=== PATIENT | female | born 1955 | race Caucasian/White ===

== ENCOUNTER 2018-06-03 12:24 | Outpatient (CLI) | payer OTHER ==
--- NOTE | 2018-06-03 14:12 | RAD ---
THREE VIEWS OF THE LUMBAR SPINE: DATE: 06/03/2018. COMPARISON: None. HISTORY: Low back pain and hip pain, back spasms, pain radiating into the left groin and right leg. FINDINGS: There are postoperative clips in the right upper quadrant suggesting prior cholecystectomy. Five lum bar-type vertebral bodies are present with intact pedicles on frontal imaging. There is atherosclero tic calcification of the abdominal aorta. There is normal vertebral body height and alignment within the lumbar spine. There is lower lumbar s pine facet hypertrophy. There is disk space narrowing and degenerative end plate change at the lumbo sacral junction. IMPRESSION: No acute findings. Degenerative changes as detailed above. POS: [facility]
--- NOTE | 2018-06-03 14:14 | RAD ---
FRONTAL AND LATERAL IMAGING OF THE LEFT HIP: DATE: 06/03/2018. COMPARISON: None. HISTORY: Low back pain and hip pain, back spasms. FINDINGS: There is mild lateral acetabular osteophyte formation. There is mild osteophyte formation involving the greater trochanter. No acute fracture or dislocation. IMPRESSION: No acute findings. POS: [facility]
== END 2018-06-03 12:25 | disposition home or self-care (01) ==
LOC: SCSRAD 12:24
PROVIDERS: ATTEND Family Medicine
DX: M54.5 Low back pain (principal); M16.12 Unilateral primary osteoarthritis, left hip; M47.817 Spondylosis without myelopathy or radiculopathy, lumbosacral region
CPT/HCPCS: 72100

== ENCOUNTER 2018-07-04 12:15 | Outpatient (CLI) | payer OTHER ==
--- NOTE | 2018-07-04 12:58 | RAD ---
CHEST 2 VIEWS: HISTORY: Cough. Influenza. FINDINGS: No comparison. Cardiac silhouette and pulmonary vasculature are unremarkable. Mediastinum is midlin e. No confluent airspace consolidation, pneumothorax, or pleural fluid evident. IMPRESSION: No active cardiopulmonary abnormalities are demonstrated. POS: [facility]
== END 2018-07-04 12:16 | disposition home or self-care (01) ==
LOC: SCSRAD 12:15
PROVIDERS: ATTEND Nurse Practitioner Family
DX: R05 Cough (principal)
CPT/HCPCS: 71046

== ENCOUNTER 2023-05-27 11:22 | Inpatient (IN) | payer OTHER ==
[2023-05-27 16:03] VITALS: BMI 58.6
[2023-05-27] MEDS ORDERED: Dextrose 5% in Water 1,000 ML IV PRN (17:23)
[2023-05-27] MEDS ORDERED: Glucagon 1 MG/ML KIT IM PRN (17:23)
[2023-05-27] MEDS ORDERED: HumaLOG 300 UNITS/3 ML VIAL SC PRN (17:23)
[2023-05-27] MEDS ORDERED: Dextrose 50% Abboject 50 ML SYRINGE SLOW IVP PRN (17:23)
[2023-05-27] MEDS: Famotidine 20 MG TAB PO SCH (20:35)
[2023-05-27] MEDS: Saccharomyces boulardii 250 MG CAP PO SCH (20:35)
[2023-05-28] MEDS: Amiodarone 200 MG TAB PO SCH (10:01)
[2023-05-28] MEDS: Famotidine 20 MG TAB PO SCH ×2 (10:01→21:25)
[2023-05-28] MEDS: Saccharomyces boulardii 250 MG CAP PO SCH ×2 (10:01→21:25)
[2023-05-28] MEDS: Sertraline 100 MG TAB PO SCH (10:02)
[2023-05-28 10:11] LABS: #Basophils 0.1 thou/uL (0.0-0.2); #Eosinphils 0.2 thou/uL (0.0-0.7); #Monocytes 0.8 thou/uL (0.11-0.59); %Basophils 0.8 % (0.0-1.0); %Lymphocytes 10.1 % (21.0-51.0); %Monocytes 4.7 % (0.0-10.0); %Neutrophils 82.4 % (42.0-75.0); Hematocrit 40.1 % (36.0-47.0); Hemoglobin 12.8 g/dL (12.0-16.0); Mean Corpuscular HGB CONC 31.9 g/dL (32.0-36.0); Mean Corpuscular Hemoglobin 30.4 pg (27.0-31.0); Mean Corpuscular Volume 95.2 fl (78.0-98.0); Mean Platelet Volume 9.7 fL (7.4-10.4); Platelet Count 517 10x3/uL (130-400); RBC Distribution Width 15.7 % (11.5-14.5); Red Blood Cell (RBC) Count 4.21 mill/uL (4.20-5.40); White Blood Cell (WBC) Count 15.8 10x3/uL (4.8-10.8)
[2023-05-28 10:38] LABS: Anion Gap 13 mmol/L (10-20); BUN (Urea Nitrogen) 13 mg/dL (9.8-20.1); Calc. Creatinine Clearance 233 mL/min (70-130); Calcium 8.4 mg/dL (7.8-10.44); Carbon Dioxide 25 mmol/L (23-31); Chloride 104 mmol/L (98-107); Estimated GFR 100; Glucose 111 mg/dL (80-115); Magnesium 1.8 mg/dL (1.6-2.6); Phosphorus 2.8 mg/dL (2.3-4.7); Potassium 3.7 mmol/L (3.5-5.1); Sodium 138 mmol/L (136-145)
[2023-05-28] MEDS ORDERED: GoLYTELY 4,000 ml Bottle PO SCH (16:00)
[2023-05-29 03:56] LABS: #Basophils 0.2 thou/uL (0.0-0.2); #Eosinphils 0.2 thou/uL (0.0-0.7); #Monocytes 0.9 thou/uL (0.11-0.59); #Neutrophils 13.5 thou/uL (1.40-6.50); %Eosinophils 1.3 % (0.0-10.0); %Lymphocytes 10.9 % (21.0-51.0); %Monocytes 5.4 % (0.0-10.0); %Neutrophils 80.6 % (42.0-75.0); Hematocrit 38.2 % (36.0-47.0); Hemoglobin 12.3 g/dL (12.0-16.0); Mean Corpuscular HGB CONC 32.2 g/dL (32.0-36.0); Mean Corpuscular Hemoglobin 30.7 pg (27.0-31.0); Mean Corpuscular Volume 95.3 fl (78.0-98.0); Mean Platelet Volume 9.4 fL (7.4-10.4); Platelet Count 534 10x3/uL (130-400); RBC Distribution Width 15.6 % (11.5-14.5); Red Blood Cell (RBC) Count 4.01 mill/uL (4.20-5.40); White Blood Cell (WBC) Count 16.7 10x3/uL (4.8-10.8)
[2023-05-29] MEDS ORDERED: Lidocaine 2% PF 5 ML VIAL ONE (08:41)
[2023-05-29] MEDS ORDERED: PROPOFOL 20 ML ONE (08:42)
[2023-05-29] MEDS ORDERED: PROPOFOL 200 MG/20 ML VIAL ONE (09:15)
[2023-05-29] MEDS ORDERED: Esmolol 100 MG/10 ML VIAL ONE (09:15)
[2023-05-29] MEDS ORDERED: Lidocaine 1% PF 5 ML VIAL ONE (09:15)
[2023-05-29] MEDS: Amiodarone 200 MG TAB PO SCH (11:26)
[2023-05-29] MEDS: Saccharomyces boulardii 250 MG CAP PO SCH ×2 (11:26→20:14)
[2023-05-29] MEDS: Famotidine 20 MG TAB PO SCH ×2 (11:26→20:14)
[2023-05-29] MEDS: Sertraline 100 MG TAB PO SCH (11:26)
[2023-05-30 04:12] LABS: #Basophils 0.1 thou/uL (0.0-0.2); #Eosinphils 0.2 thou/uL (0.0-0.7); #Monocytes 0.8 thou/uL (0.11-0.59); #Neutrophils 6.8 thou/uL (1.40-6.50); %Basophils 1.3 % (0.0-1.0); %Eosinophils 1.6 % (0.0-10.0); %Lymphocytes 18.9 % (21.0-51.0); %Monocytes 8.2 % (0.0-10.0); %Neutrophils 69.4 % (42.0-75.0); Hemoglobin 11.3 g/dL (12.0-16.0); Mean Corpuscular HGB CONC 31.4 g/dL (32.0-36.0); Mean Corpuscular Hemoglobin 30.4 pg (27.0-31.0); Mean Corpuscular Volume 96.8 fl (78.0-98.0); Mean Platelet Volume 9.3 fL (7.4-10.4); Platelet Count 478 10x3/uL (130-400); RBC Distribution Width 15.6 % (11.5-14.5); Red Blood Cell (RBC) Count 3.72 mill/uL (4.20-5.40); White Blood Cell (WBC) Count 9.9 10x3/uL (4.8-10.8)
[2023-05-30] MEDS: Saccharomyces boulardii 250 MG CAP PO SCH ×2 (08:44→20:57)
[2023-05-30] MEDS: Famotidine 20 MG TAB PO SCH ×2 (08:44→20:57)
[2023-05-30] MEDS: Amiodarone 200 MG TAB PO SCH (08:44)
[2023-05-30] MEDS: Sertraline 100 MG TAB PO SCH (08:44)
[2023-05-30] MEDS ORDERED: Furosemide 20 MG TAB PO SCH (11:30)
[2023-05-30 12:55] LABS: Hemoglobin A1c 5.5 % (4.0-6.0)
[2023-05-30] MEDS: DULoxetine 60 MG CAP PO SCH (20:57)
[2023-05-31 05:48] LABS: #Basophils 0.1 thou/uL (0.0-0.2); #Eosinphils 0.1 thou/uL (0.0-0.7); #Monocytes 0.6 thou/uL (0.11-0.59); %Basophils 1.3 % (0.0-1.0); %Eosinophils 1.7 % (0.0-10.0); %Lymphocytes 17.7 % (21.0-51.0); %Neutrophils 71.7 % (42.0-75.0); Hematocrit 36.6 % (36.0-47.0); Hemoglobin 11.5 g/dL (12.0-16.0); Mean Corpuscular HGB CONC 31.4 g/dL (32.0-36.0); Mean Corpuscular Hemoglobin 30.5 pg (27.0-31.0); Mean Corpuscular Volume 97.1 fl (78.0-98.0); Mean Platelet Volume 9.3 fL (7.4-10.4); Platelet Count 513 10x3/uL (130-400); RBC Distribution Width 15.1 % (11.5-14.5); Red Blood Cell (RBC) Count 3.77 mill/uL (4.20-5.40); White Blood Cell (WBC) Count 8.4 10x3/uL (4.8-10.8)
[2023-05-31 06:16] LABS: Anion Gap 11 mmol/L (10-20); BUN (Urea Nitrogen) 6 mg/dL (9.8-20.1); Calc. Creatinine Clearance 250 mL/min (70-130); Calcium 8.1 mg/dL (7.8-10.44); Carbon Dioxide 31 mmol/L (23-31); Chloride 101 mmol/L (98-107); Estimated GFR 102; Glucose 77 mg/dL (80-115); Potassium 3.3 mmol/L (3.5-5.1); Sodium 140 mmol/L (136-145)
[2023-05-31] MEDS ORDERED: Potassium Chloride 20 MEQ TAB PO SCH (08:00)
[2023-05-31] MEDS: Famotidine 20 MG TAB PO SCH ×2 (09:33→20:59)
[2023-05-31] MEDS: Aspirin 81 mg Enteric Coated Tablet PO SCH (09:33)
[2023-05-31] MEDS: Apixaban 5 MG TAB PO SCH ×2 (09:33→20:58)
[2023-05-31] MEDS: Acetaminophen 325 MG TAB PO PRN (09:34)
[2023-05-31] MEDS: Amiodarone 200 MG TAB PO SCH (09:34)
[2023-05-31] MEDS: Spironolactone 25 MG TAB PO SCH (09:34)
[2023-05-31] MEDS: Furosemide 20 MG TAB PO SCH (09:34)
[2023-05-31] MEDS: Sertraline 100 MG TAB PO SCH (09:34)
[2023-05-31] MEDS: Saccharomyces boulardii 250 MG CAP PO SCH ×2 (09:44→20:58)
[2023-05-31] MEDS: DULoxetine 60 MG CAP PO SCH (20:58)
[2023-06-01 04:08] LABS: #Basophils 0.1 thou/uL (0.0-0.2); #Eosinphils 0.2 thou/uL (0.0-0.7); #Monocytes 0.8 thou/uL (0.11-0.59); #Neutrophils 5.7 thou/uL (1.40-6.50); %Basophils 1.5 % (0.0-1.0); %Eosinophils 1.8 % (0.0-10.0); %Lymphocytes 21.3 % (21.0-51.0); %Monocytes 9.4 % (0.0-10.0); %Neutrophils 65.5 % (42.0-75.0); Hematocrit 34.5 % (36.0-47.0); Hemoglobin 10.9 g/dL (12.0-16.0); Mean Corpuscular HGB CONC 31.6 g/dL (32.0-36.0); Mean Platelet Volume 9.2 fL (7.4-10.4); Platelet Count 515 10x3/uL (130-400); RBC Distribution Width 14.8 % (11.5-14.5); Red Blood Cell (RBC) Count 3.63 mill/uL (4.20-5.40); White Blood Cell (WBC) Count 8.7 10x3/uL (4.8-10.8)
[2023-06-01 04:35] LABS: ALT (SGPT) Less than 7 U/L (8-55); AST (SGOT) 11 U/L (5-34); Albumin 2.3 g/dL (3.4-4.8); Alkaline Phosphatase 78 U/L (40-110); Anion Gap 11 mmol/L (10-20); BUN (Urea Nitrogen) 7 mg/dL (9.8-20.1); Bilirubin, Total 0.5 mg/dL (0.2-1.2); Calc. Creatinine Clearance 269 mL/min (70-130); Calcium 8.2 mg/dL (7.8-10.44); Carbon Dioxide 32 mmol/L (23-31); Chloride 101 mmol/L (98-107); Estimated GFR 104; Globulin 2.8 g/dL (2.4-3.5); Glucose 92 mg/dL (80-115); Magnesium 1.5 mg/dL (1.6-2.6); Phosphorus 2.9 mg/dL (2.3-4.7); Protein, Total 5.1 g/dL (5.8-8.1); Sodium 141 mmol/L (136-145)
[2023-06-01] MEDS ORDERED: Magnesium 2 GM/50 ML(in water) 2 GM in Premix 1 BAG IVPB SCH (07:00)
[2023-06-01] MEDS: Famotidine 20 MG TAB PO SCH ×2 (08:41→21:16)
[2023-06-01] MEDS: Furosemide 20 MG TAB PO SCH (08:42)
[2023-06-01] MEDS: Aspirin 81 mg Enteric Coated Tablet PO SCH (08:42)
[2023-06-01] MEDS: Spironolactone 25 MG TAB PO SCH (08:42)
[2023-06-01] MEDS: Amiodarone 200 MG TAB PO SCH (08:42)
[2023-06-01] MEDS: Sertraline 100 MG TAB PO SCH (08:42)
[2023-06-01] MEDS: Apixaban 5 MG TAB PO SCH ×2 (08:42→21:16)
[2023-06-01] MEDS: Saccharomyces boulardii 250 MG CAP PO SCH ×2 (08:42→21:16)
[2023-06-01] MEDS: Potassium Chloride 20 MEQ TAB PO SCH ×2 (08:42→18:27)
[2023-06-01] MEDS: Acetaminophen 325 MG TAB PO PRN (08:48)
[2023-06-01] MEDS ORDERED: HYDROcodone/Acetaminophen 5/325 mg Tablet PO PRN (16:46)
[2023-06-01] MEDS: DULoxetine 60 MG CAP PO SCH (21:16)
[2023-06-01] MEDS: Pregabalin 75 MG CAP PO SCH (21:16)
[2023-06-02 07:10] LABS: #Basophils 0.2 thou/uL (0.0-0.2); #Eosinphils 0.2 thou/uL (0.0-0.7); #Neutrophils 6.7 thou/uL (1.40-6.50); %Basophils 1.8 % (0.0-1.0); %Eosinophils 1.7 % (0.0-10.0); %Lymphocytes 18.6 % (21.0-51.0); %Neutrophils 67.5 % (42.0-75.0); Hematocrit 36.2 % (36.0-47.0); Hemoglobin 11.5 g/dL (12.0-16.0); Mean Corpuscular HGB CONC 31.8 g/dL (32.0-36.0); Mean Corpuscular Hemoglobin 30.6 pg (27.0-31.0); Mean Corpuscular Volume 96.3 fl (78.0-98.0); Mean Platelet Volume 8.9 fL (7.4-10.4); Platelet Count 567 10x3/uL (130-400); RBC Distribution Width 15.1 % (11.5-14.5); Red Blood Cell (RBC) Count 3.76 mill/uL (4.20-5.40); White Blood Cell (WBC) Count 9.9 10x3/uL (4.8-10.8)
[2023-06-02] MEDS: Aspirin 81 mg Enteric Coated Tablet PO SCH (08:29)
[2023-06-02] MEDS: Apixaban 5 MG TAB PO SCH ×2 (08:29→20:41)
[2023-06-02] MEDS: Famotidine 20 MG TAB PO SCH ×2 (08:29→20:41)
[2023-06-02] MEDS: Saccharomyces boulardii 250 MG CAP PO SCH ×2 (08:29→20:42)
[2023-06-02] MEDS: Pregabalin 75 MG CAP PO SCH ×2 (08:30→20:41)
[2023-06-02] MEDS: Furosemide 20 MG TAB PO SCH (08:30)
[2023-06-02] MEDS: Amiodarone 200 MG TAB PO SCH (08:30)
[2023-06-02] MEDS: Acetaminophen 325 MG TAB PO PRN (08:30)
[2023-06-02] MEDS: Sertraline 100 MG TAB PO SCH (08:30)
[2023-06-02] MEDS: Spironolactone 25 MG TAB PO SCH (08:31)
[2023-06-02 09:34] LABS: ALT (SGPT) Less than 7 U/L (8-55); AST (SGOT) 12 U/L (5-34); Albumin 2.7 g/dL (3.4-4.8); Alkaline Phosphatase 85 U/L (40-110); Anion Gap 11 mmol/L (10-20); BUN (Urea Nitrogen) 8 mg/dL (9.8-20.1); Bilirubin, Total 0.6 mg/dL (0.2-1.2); Calc. Creatinine Clearance 215 mL/min (70-130); Calcium 8.5 mg/dL (7.8-10.44); Carbon Dioxide 32 mmol/L (23-31); Chloride 100 mmol/L (98-107); Estimated GFR 98; Glucose 94 mg/dL (80-115); Magnesium 1.7 mg/dL (1.6-2.6); Potassium 3.3 mmol/L (3.5-5.1); Protein, Total 5.7 g/dL (5.8-8.1); Sodium 140 mmol/L (136-145)
[2023-06-02] MEDS ORDERED: Potassium Chloride 20 MEQ TAB PO SCH ×2 (10:15→15:00)
[2023-06-02 10:44] LABS: Lactic Acid 0.6 mmol/L (0.5-2.2)
[2023-06-02] MEDS ORDERED: Fidaxomicin 200 MG TAB PO SCH (12:15)
[2023-06-02] MEDS: DULoxetine 60 MG CAP PO SCH (20:41)
[2023-06-02] MEDS: Simethicone Chewable 80 MG TAB PO PRN (20:41)
[2023-06-02] MEDS: Fidaxomicin 200 MG TAB PO SCH (20:41)
[2023-06-03 04:49] LABS: ALT (SGPT) Less than 7 U/L (8-55); AST (SGOT) 12 U/L (5-34); Albumin 2.4 g/dL (3.4-4.8); Alkaline Phosphatase 82 U/L (40-110); Anion Gap 12 mmol/L (10-20); BUN (Urea Nitrogen) 9 mg/dL (9.8-20.1); Bilirubin, Total 0.5 mg/dL (0.2-1.2); Calc. Creatinine Clearance 237 mL/min (70-130); Calcium 8.3 mg/dL (7.8-10.44); Carbon Dioxide 32 mmol/L (23-31); Chloride 100 mmol/L (98-107); Estimated GFR 100; Glucose 92 mg/dL (80-115); Potassium 3.6 mmol/L (3.5-5.1); Protein, Total 5.4 g/dL (5.8-8.1); Sodium 140 mmol/L (136-145)
[2023-06-03] MEDS: Apixaban 5 MG TAB PO SCH ×2 (09:41→20:24)
[2023-06-03] MEDS: Amiodarone 200 MG TAB PO SCH (09:41)
[2023-06-03] MEDS: Pregabalin 75 MG CAP PO SCH ×2 (09:42→20:24)
[2023-06-03] MEDS: Sertraline 100 MG TAB PO SCH (09:42)
[2023-06-03] MEDS: Spironolactone 25 MG TAB PO SCH (09:42)
[2023-06-03] MEDS: Aspirin 81 mg Enteric Coated Tablet PO SCH (09:42)
[2023-06-03] MEDS: Famotidine 20 MG TAB PO SCH ×2 (09:42→20:24)
[2023-06-03] MEDS: Furosemide 20 MG TAB PO SCH (09:42)
[2023-06-03] MEDS: Saccharomyces boulardii 250 MG CAP PO SCH ×2 (09:42→20:25)
[2023-06-03] MEDS: Fidaxomicin 200 MG TAB PO SCH ×2 (09:46→20:25)
[2023-06-03 19:42] LABS: Hematocrit 32.7 % (36.0-47.0); Hemoglobin 10.2 g/dL (12.0-16.0)
[2023-06-03] MEDS: DULoxetine 60 MG CAP PO SCH (20:25)
[2023-06-03] MEDS: Simethicone Chewable 80 MG TAB PO PRN (20:25)
[2023-06-04 03:41] LABS: #Basophils 0.2 thou/uL (0.0-0.2); #Eosinphils 0.3 thou/uL (0.0-0.7); #Monocytes 1.1 thou/uL (0.11-0.59); #Neutrophils 6.3 thou/uL (1.40-6.50); %Basophils 1.9 % (0.0-1.0); %Eosinophils 2.6 % (0.0-10.0); %Lymphocytes 19.8 % (21.0-51.0); %Monocytes 11.1 % (0.0-10.0); %Neutrophils 64.1 % (42.0-75.0); Hematocrit 30.5 % (36.0-47.0); Hemoglobin 9.5 g/dL (12.0-16.0); Mean Corpuscular HGB CONC 31.1 g/dL (32.0-36.0); Mean Corpuscular Hemoglobin 30.7 pg (27.0-31.0); Mean Corpuscular Volume 98.7 fl (78.0-98.0); Platelet Count 569 10x3/uL (130-400); RBC Distribution Width 14.7 % (11.5-14.5); Red Blood Cell (RBC) Count 3.09 mill/uL (4.20-5.40); White Blood Cell (WBC) Count 9.8 10x3/uL (4.8-10.8)
[2023-06-04 04:16] LABS: Anion Gap 9 mmol/L (10-20); BUN (Urea Nitrogen) 10 mg/dL (9.8-20.1); Calc. Creatinine Clearance 237 mL/min (70-130); Calcium 8.4 mg/dL (7.8-10.44); Carbon Dioxide 34 mmol/L (23-31); Chloride 99 mmol/L (98-107); Estimated GFR 100; Glucose 104 mg/dL (80-115); Potassium 3.2 mmol/L (3.5-5.1); Sodium 139 mmol/L (136-145)
[2023-06-04] MEDS ORDERED: Electrolyte Replacement Protocol 1 EACH FS SCH (06:33)
[2023-06-04] MEDS ORDERED: Potassium Chloride 20 MEQ TAB PO SCH (08:00)
[2023-06-04] MEDS ORDERED: Magnesium 2 GM/50 ML(in water) 2 GM in Premix 1 BAG IVPB SCH (08:00)
[2023-06-04 08:55] LABS: Hematocrit 29.9 % (36.0-47.0); Hemoglobin 9.4 g/dL (12.0-16.0)
[2023-06-04 09:16] LABS: Lactic Acid 0.7 mmol/L (0.5-2.2)
[2023-06-04] MEDS: Pregabalin 75 MG CAP PO SCH ×2 (10:13→20:41)
[2023-06-04] MEDS: Spironolactone 25 MG TAB PO SCH (10:14)
[2023-06-04] MEDS: Saccharomyces boulardii 250 MG CAP PO SCH ×2 (10:14→20:41)
[2023-06-04] MEDS: Famotidine 20 MG TAB PO SCH ×2 (10:14→20:41)
[2023-06-04] MEDS: Amiodarone 200 MG TAB PO SCH (10:14)
[2023-06-04] MEDS: Furosemide 20 MG TAB PO SCH (10:14)
[2023-06-04] MEDS: Sertraline 100 MG TAB PO SCH (10:14)
[2023-06-04] MEDS: Fidaxomicin 200 MG TAB PO SCH ×2 (10:23→20:41)
[2023-06-04] MEDS ORDERED: Iopamidol 370 76% 100 ML VIAL ONE (13:36)
[2023-06-04 17:15] LABS: Hematocrit 28.2 % (36.0-47.0); Hemoglobin 8.8 g/dL (12.0-16.0)
[2023-06-04] MEDS ORDERED: GoLYTELY 4,000 ml Bottle PO SCH (18:00)
[2023-06-04] MEDS: DULoxetine 60 MG CAP PO SCH (20:41)
[2023-06-04] MEDS ORDERED: Metoprolol Tartrate 25 MG TAB PO SCH (21:00)
[2023-06-05 04:44] LABS: #Basophils 0.2 thou/uL (0.0-0.2); #Eosinphils 0.3 thou/uL (0.0-0.7); #Neutrophils 5.4 thou/uL (1.40-6.50); %Basophils 2.5 % (0.0-1.0); %Lymphocytes 21.1 % (21.0-51.0); %Monocytes 11.5 % (0.0-10.0); %Neutrophils 61.3 % (42.0-75.0); Hematocrit 28.2 % (36.0-47.0); Mean Corpuscular HGB CONC 31.9 g/dL (32.0-36.0); Mean Corpuscular Hemoglobin 31.3 pg (27.0-31.0); Mean Corpuscular Volume 97.9 fl (78.0-98.0); Mean Platelet Volume 9.3 fL (7.4-10.4); Platelet Count 613 10x3/uL (130-400); RBC Distribution Width 14.6 % (11.5-14.5); Red Blood Cell (RBC) Count 2.88 mill/uL (4.20-5.40); White Blood Cell (WBC) Count 8.8 10x3/uL (4.8-10.8)
[2023-06-05 05:19] LABS: Anion Gap 10 mmol/L (10-20); BUN (Urea Nitrogen) 8 mg/dL (9.8-20.1); Calc. Creatinine Clearance 259 mL/min (70-130); Calcium 8.1 mg/dL (7.8-10.44); Carbon Dioxide 35 mmol/L (23-31); Chloride 98 mmol/L (98-107); Estimated GFR 103; Glucose 95 mg/dL (80-115); Potassium 3.1 mmol/L (3.5-5.1); Sodium 140 mmol/L (136-145)
[2023-06-05 08:07] LABS: Magnesium 1.8 mg/dL (1.6-2.6); Phosphorus 3.2 mg/dL (2.3-4.7)
[2023-06-05] MEDS: Sertraline 100 MG TAB PO SCH (08:16)
[2023-06-05] MEDS: Pregabalin 75 MG CAP PO SCH ×2 (08:17→20:30)
[2023-06-05] MEDS: Famotidine 20 MG TAB PO SCH ×2 (08:17→20:31)
[2023-06-05] MEDS: Fidaxomicin 200 MG TAB PO SCH ×2 (08:17→20:31)
[2023-06-05] MEDS: Spironolactone 25 MG TAB PO SCH (08:17)
[2023-06-05] MEDS: Saccharomyces boulardii 250 MG CAP PO SCH ×2 (08:17→20:32)
[2023-06-05] MEDS: Amiodarone 200 MG TAB PO SCH (08:17)
[2023-06-05] MEDS: Furosemide 20 MG TAB PO SCH (08:17)
[2023-06-05] MEDS ORDERED: Magnesium 2 GM/50 ML(in water) 2 GM in Premix 1 BAG IVPB SCH ×2 (09:00→15:15)
[2023-06-05] MEDS ORDERED: Electrolyte Replacement Protocol FS PRN (09:00)
[2023-06-05] MEDS ORDERED: Metoprolol Tartrate 5 MG/5 ML VIAL ONE (09:03)
[2023-06-05] MEDS ORDERED: PROPOFOL 20 ML ONE (09:19)
[2023-06-05] MEDS ORDERED: PROPOFOL 200 MG/20 ML VIAL ONE (09:27)
[2023-06-05] MEDS: Potassium Chloride 20 MEQ in Premix 1 BAG IVPB SCH ×3 (11:08→23:45)
[2023-06-05] MEDS ORDERED: Potassium Bicarbonate/Cit Ac 20 MEQ TAB PER TUBE SCH (15:15)
[2023-06-05 15:27] LABS: Anion Gap 10 mmol/L (10-20); BUN (Urea Nitrogen) 8 mg/dL (9.8-20.1); Calc. Creatinine Clearance 241 mL/min (70-130); Calcium 7.9 mg/dL (7.8-10.44); Carbon Dioxide 35 mmol/L (23-31); Chloride 97 mmol/L (98-107); Estimated GFR 101; Glucose 109 mg/dL (80-115); Potassium 3.4 mmol/L (3.5-5.1); Sodium 139 mmol/L (136-145)
[2023-06-05] MEDS: DULoxetine 60 MG CAP PO SCH (20:29)
[2023-06-05 21:02] LABS: Potassium 3.3 mmol/L (3.5-5.1)
[2023-06-06] MEDS: Potassium Chloride 20 MEQ in Premix 1 BAG IVPB SCH ×3 (01:28→10:07)
[2023-06-06 05:57] LABS: #Basophils 0.2 thou/uL (0.0-0.2); #Eosinphils 0.5 thou/uL (0.0-0.7); #Monocytes 0.9 thou/uL (0.11-0.59); #Neutrophils 3.8 thou/uL (1.40-6.50); %Basophils 2.3 % (0.0-1.0); %Eosinophils 6.3 % (0.0-10.0); %Lymphocytes 24.6 % (21.0-51.0); %Monocytes 13.1 % (0.0-10.0); %Neutrophils 53.3 % (42.0-75.0); Hematocrit 26.5 % (36.0-47.0); Hemoglobin 8.1 g/dL (12.0-16.0); Mean Corpuscular HGB CONC 30.6 g/dL (32.0-36.0); Mean Corpuscular Hemoglobin 30.2 pg (27.0-31.0); Mean Corpuscular Volume 98.9 fl (78.0-98.0); Mean Platelet Volume 9.5 fL (7.4-10.4); Platelet Count 583 10x3/uL (130-400); RBC Distribution Width 14.6 % (11.5-14.5); Red Blood Cell (RBC) Count 2.68 mill/uL (4.20-5.40); White Blood Cell (WBC) Count 7.1 10x3/uL (4.8-10.8)
[2023-06-06 06:23] LABS: Phosphorus 3.3 mg/dL (2.3-4.7)
[2023-06-06 06:25] LABS: Anion Gap 9 mmol/L (10-20); BUN (Urea Nitrogen) 7 mg/dL (9.8-20.1); Calc. Creatinine Clearance 250 mL/min (70-130); Calcium 8.1 mg/dL (7.8-10.44); Carbon Dioxide 34 mmol/L (23-31); Chloride 98 mmol/L (98-107); Estimated GFR 102; Glucose 96 mg/dL (80-115); Magnesium 1.9 mg/dL (1.6-2.6); Potassium 3.3 mmol/L (3.5-5.1); Sodium 138 mmol/L (136-145)
[2023-06-06] MEDS ORDERED: Magnesium 2 GM/50 ML(in water) 2 GM in Premix 1 BAG IVPB SCH (06:45)
[2023-06-06] MEDS ORDERED: Potassium Chloride 20 MEQ TAB PO SCH (07:00)
[2023-06-06] MEDS: Furosemide 20 MG TAB PO SCH (09:10)
[2023-06-06] MEDS: Sertraline 100 MG TAB PO SCH (09:10)
[2023-06-06] MEDS: Amiodarone 200 MG TAB PO SCH (09:10)
[2023-06-06] MEDS: Spironolactone 25 MG TAB PO SCH (09:10)
[2023-06-06] MEDS: Pregabalin 75 MG CAP PO SCH ×2 (09:10→20:15)
[2023-06-06] MEDS: Saccharomyces boulardii 250 MG CAP PO SCH ×2 (09:10→20:15)
[2023-06-06] MEDS: Famotidine 20 MG TAB PO SCH ×2 (09:10→20:15)
[2023-06-06] MEDS ORDERED: Fidaxomicin 200 MG TAB PO SCH (09:30)
[2023-06-06] MEDS: Fidaxomicin 200 MG TAB PO SCH (20:15)
[2023-06-06] MEDS: DULoxetine 60 MG CAP PO SCH (20:15)
[2023-06-07 04:05] LABS: #Basophils 0.1 thou/uL (0.0-0.2); #Eosinphils 0.4 thou/uL (0.0-0.7); #Monocytes 0.6 thou/uL (0.11-0.59); #Neutrophils 3.4 thou/uL (1.40-6.50); %Eosinophils 6.3 % (0.0-10.0); %Lymphocytes 26.1 % (21.0-51.0); %Monocytes 10.1 % (0.0-10.0); %Neutrophils 55.2 % (42.0-75.0); Hematocrit 26.2 % (36.0-47.0); Hemoglobin 8.3 g/dL (12.0-16.0); Mean Corpuscular HGB CONC 31.7 g/dL (32.0-36.0); Mean Corpuscular Volume 97.8 fl (78.0-98.0); Mean Platelet Volume 9.3 fL (7.4-10.4); Platelet Count 620 10x3/uL (130-400); RBC Distribution Width 14.5 % (11.5-14.5); Red Blood Cell (RBC) Count 2.68 mill/uL (4.20-5.40); White Blood Cell (WBC) Count 6.1 10x3/uL (4.8-10.8)
[2023-06-07 04:26] LABS: Phosphorus 2.9 mg/dL (2.3-4.7)
[2023-06-07 04:31] LABS: Anion Gap 11 mmol/L (10-20); BUN (Urea Nitrogen) 5 mg/dL (9.8-20.1); Calc. Creatinine Clearance 250 mL/min (70-130); Carbon Dioxide 34 mmol/L (23-31); Chloride 97 mmol/L (98-107); Estimated GFR 102; Glucose 96 mg/dL (80-115); Magnesium 1.7 mg/dL (1.6-2.6); Potassium 3.2 mmol/L (3.5-5.1); Sodium 139 mmol/L (136-145)
[2023-06-07] MEDS: Sertraline 100 MG TAB PO SCH (07:35)
[2023-06-07] MEDS: Famotidine 20 MG TAB PO SCH ×2 (07:35→20:36)
[2023-06-07] MEDS: Pregabalin 75 MG CAP PO SCH ×2 (07:36→20:37)
[2023-06-07] MEDS: Saccharomyces boulardii 250 MG CAP PO SCH ×2 (07:36→20:38)
[2023-06-07] MEDS: Furosemide 20 MG TAB PO SCH (07:36)
[2023-06-07] MEDS: Spironolactone 25 MG TAB PO SCH (07:36)
[2023-06-07] MEDS: Amiodarone 200 MG TAB PO SCH (07:36)
[2023-06-07] MEDS: Fidaxomicin 200 MG TAB PO SCH ×2 (07:56→20:37)
[2023-06-07] MEDS ORDERED: Magnesium 2 GM/50 ML(in water) 2 GM in Premix 1 BAG IVPB SCH (08:00)
[2023-06-07] MEDS ORDERED: Potassium Chloride 20 MEQ TAB PO SCH (08:00)
[2023-06-07] MEDS: DULoxetine 60 MG CAP PO SCH (20:36)
[2023-06-08 05:11] LABS: #Basophils 0.2 thou/uL (0.0-0.2); #Eosinphils 0.5 thou/uL (0.0-0.7); #Monocytes 0.9 thou/uL (0.11-0.59); %Eosinophils 6.3 % (0.0-10.0); %Lymphocytes 26.3 % (21.0-51.0); %Monocytes 11.9 % (0.0-10.0); %Neutrophils 53.1 % (42.0-75.0); Hematocrit 26.9 % (36.0-47.0); Hemoglobin 8.3 g/dL (12.0-16.0); Mean Corpuscular HGB CONC 30.9 g/dL (32.0-36.0); Mean Corpuscular Hemoglobin 30.9 pg (27.0-31.0); Mean Platelet Volume 9.2 fL (7.4-10.4); Platelet Count 670 10x3/uL (130-400); RBC Distribution Width 14.6 % (11.5-14.5); Red Blood Cell (RBC) Count 2.69 mill/uL (4.20-5.40); White Blood Cell (WBC) Count 7.6 10x3/uL (4.8-10.8)
[2023-06-08 05:35] LABS: Anion Gap 11 mmol/L (10-20); BUN (Urea Nitrogen) 8 mg/dL (9.8-20.1); Calc. Creatinine Clearance 199 mL/min (70-130); Calcium 8.1 mg/dL (7.8-10.44); Carbon Dioxide 35 mmol/L (23-31); Chloride 98 mmol/L (98-107); Estimated GFR 96; Glucose 92 mg/dL (80-115); Potassium 3.2 mmol/L (3.5-5.1); Sodium 141 mmol/L (136-145)
[2023-06-08] MEDS ORDERED: Potassium Chloride 20 MEQ TAB PO SCH (08:00)
[2023-06-08] MEDS: Pregabalin 75 MG CAP PO SCH ×2 (08:12→20:57)
[2023-06-08] MEDS: Saccharomyces boulardii 250 MG CAP PO SCH ×2 (08:12→20:58)
[2023-06-08] MEDS: Famotidine 20 MG TAB PO SCH ×2 (08:13→20:57)
[2023-06-08] MEDS: Furosemide 20 MG TAB PO SCH (08:13)
[2023-06-08] MEDS: Spironolactone 25 MG TAB PO SCH (08:13)
[2023-06-08] MEDS: Amiodarone 200 MG TAB PO SCH (08:13)
[2023-06-08] MEDS: Sertraline 100 MG TAB PO SCH (08:13)
[2023-06-08] MEDS: Fidaxomicin 200 MG TAB PO SCH ×2 (08:14→20:57)
[2023-06-08] MEDS: Acetaminophen 325 MG TAB PO PRN ×2 (10:56→21:03)
[2023-06-08] MEDS: DULoxetine 60 MG CAP PO SCH (20:56)
[2023-06-08] MEDS: Apixaban 5 MG TAB PO SCH (20:56)
[2023-06-09 04:53] LABS: Anion Gap 14 mmol/L (10-20); BUN (Urea Nitrogen) 9 mg/dL (9.8-20.1); Calc. Creatinine Clearance 196 mL/min (70-130); Calcium 8.5 mg/dL (7.8-10.44); Carbon Dioxide 33 mmol/L (23-31); Chloride 96 mmol/L (98-107); Estimated GFR 96; Glucose 94 mg/dL (80-115); Potassium 3.5 mmol/L (3.5-5.1); Sodium 139 mmol/L (136-145)
[2023-06-09] MEDS ORDERED: Potassium Chloride 20 MEQ TAB PO SCH (08:00)
[2023-06-09] MEDS: Fidaxomicin 200 MG TAB PO SCH ×2 (08:41→21:55)
[2023-06-09] MEDS: Sertraline 100 MG TAB PO SCH (08:41)
[2023-06-09] MEDS: Furosemide 20 MG TAB PO SCH (08:41)
[2023-06-09] MEDS: Spironolactone 25 MG TAB PO SCH (08:42)
[2023-06-09] MEDS: Pregabalin 75 MG CAP PO SCH ×2 (08:42→21:53)
[2023-06-09] MEDS: Apixaban 5 MG TAB PO SCH ×2 (08:42→21:54)
[2023-06-09] MEDS: Amiodarone 200 MG TAB PO SCH (08:42)
[2023-06-09] MEDS: Famotidine 20 MG TAB PO SCH ×2 (08:42→21:55)
[2023-06-09] MEDS: Saccharomyces boulardii 250 MG CAP PO SCH ×2 (08:42→21:54)
[2023-06-09] MEDS: Simethicone Chewable 80 MG TAB PO SCH ×4 (09:47→23:43)
[2023-06-09] MEDS: Acetaminophen 325 MG TAB PO PRN ×2 (15:07→21:54)
[2023-06-09] MEDS: DULoxetine 60 MG CAP PO SCH (21:53)
[2023-06-10 05:09] LABS: #Basophils 0.1 thou/uL (0.0-0.2); #Eosinphils 0.6 thou/uL (0.0-0.7); #Monocytes 0.9 thou/uL (0.11-0.59); #Neutrophils 3.6 thou/uL (1.40-6.50); %Basophils 1.6 % (0.0-1.0); %Eosinophils 7.5 % (0.0-10.0); %Lymphocytes 30.3 % (21.0-51.0); %Monocytes 11.7 % (0.0-10.0); %Neutrophils 48.2 % (42.0-75.0); Hematocrit 27.1 % (36.0-47.0); Hemoglobin 8.3 g/dL (12.0-16.0); Mean Corpuscular HGB CONC 30.6 g/dL (32.0-36.0); Mean Corpuscular Hemoglobin 30.4 pg (27.0-31.0); Mean Corpuscular Volume 99.3 fl (78.0-98.0); Mean Platelet Volume 9.1 fL (7.4-10.4); Platelet Count 688 10x3/uL (130-400); RBC Distribution Width 14.8 % (11.5-14.5); Red Blood Cell (RBC) Count 2.73 mill/uL (4.20-5.40); White Blood Cell (WBC) Count 7.6 10x3/uL (4.8-10.8)
[2023-06-10 06:03] LABS: Anion Gap 13 mmol/L (10-20); BUN (Urea Nitrogen) 10 mg/dL (9.8-20.1); Calc. Creatinine Clearance 196 mL/min (70-130); Calcium 8.6 mg/dL (7.8-10.44); Carbon Dioxide 33 mmol/L (23-31); Chloride 99 mmol/L (98-107); Estimated GFR 96; Glucose 90 mg/dL (80-115); Potassium 3.4 mmol/L (3.5-5.1); Sodium 142 mmol/L (136-145)
[2023-06-10] MEDS ORDERED: Potassium Chloride 20 MEQ TAB PO SCH (08:00)
[2023-06-10] MEDS: Furosemide 20 MG TAB PO SCH (08:33)
[2023-06-10] MEDS: Simethicone Chewable 80 MG TAB PO SCH ×4 (08:33→21:26)
[2023-06-10] MEDS: Famotidine 20 MG TAB PO SCH ×2 (08:33→21:25)
[2023-06-10] MEDS: Sertraline 100 MG TAB PO SCH (08:33)
[2023-06-10] MEDS: Spironolactone 25 MG TAB PO SCH (08:33)
[2023-06-10] MEDS: Fidaxomicin 200 MG TAB PO SCH ×2 (08:33→21:25)
[2023-06-10] MEDS: Apixaban 5 MG TAB PO SCH ×2 (08:33→21:25)
[2023-06-10] MEDS: Saccharomyces boulardii 250 MG CAP PO SCH ×2 (08:34→21:25)
[2023-06-10] MEDS: Amiodarone 200 MG TAB PO SCH (08:34)
[2023-06-10] MEDS: Pregabalin 75 MG CAP PO SCH ×2 (08:34→21:25)
[2023-06-10] MEDS: Acetaminophen 325 MG TAB PO PRN (14:26)
[2023-06-10] MEDS: DULoxetine 60 MG CAP PO SCH (21:25)
[2023-06-11 05:36] LABS: Anion Gap 13 mmol/L (10-20); BUN (Urea Nitrogen) 11 mg/dL (9.8-20.1); Calc. Creatinine Clearance 208 mL/min (70-130); Calcium 8.9 mg/dL (7.8-10.44); Carbon Dioxide 33 mmol/L (23-31); Chloride 98 mmol/L (98-107); Estimated GFR 97; Glucose 93 mg/dL (80-115); Potassium 3.4 mmol/L (3.5-5.1); Sodium 141 mmol/L (136-145)
[2023-06-11] MEDS ORDERED: Potassium Chloride 20 MEQ TAB PO SCH (06:15)
[2023-06-11] MEDS: Saccharomyces boulardii 250 MG CAP PO SCH ×2 (09:17→21:48)
[2023-06-11] MEDS: Furosemide 20 MG TAB PO SCH (09:17)
[2023-06-11] MEDS: Spironolactone 25 MG TAB PO SCH (09:17)
[2023-06-11] MEDS: Famotidine 20 MG TAB PO SCH ×2 (09:17→21:48)
[2023-06-11] MEDS: Pregabalin 75 MG CAP PO SCH ×2 (09:17→21:49)
[2023-06-11] MEDS: Sertraline 100 MG TAB PO SCH (09:17)
[2023-06-11] MEDS: Simethicone Chewable 80 MG TAB PO SCH ×4 (09:17→21:50)
[2023-06-11] MEDS: Amiodarone 200 MG TAB PO SCH (09:17)
[2023-06-11] MEDS: Apixaban 5 MG TAB PO SCH ×2 (09:17→21:48)
[2023-06-11 11:27] LABS: Magnesium 1.7 mg/dL (1.6-2.6)
[2023-06-11] MEDS ORDERED: Magnesium 2 GM/50 ML(in water) 2 GM in Premix 1 BAG IVPB SCH (12:45)
[2023-06-11] MEDS: DULoxetine 60 MG CAP PO SCH (21:48)
[2023-06-12 08:30] LABS: #Basophils 0.1 thou/uL (0.0-0.2); #Eosinphils 0.6 thou/uL (0.0-0.7); #Monocytes 0.7 thou/uL (0.11-0.59); #Neutrophils 6.7 thou/uL (1.40-6.50); %Basophils 1.1 % (0.0-1.0); %Eosinophils 5.7 % (0.0-10.0); %Lymphocytes 19.4 % (21.0-51.0); %Monocytes 6.8 % (0.0-10.0); %Neutrophils 66.2 % (42.0-75.0); Hematocrit 29.2 % (36.0-47.0); Mean Corpuscular HGB CONC 30.8 g/dL (32.0-36.0); Mean Corpuscular Hemoglobin 31.4 pg (27.0-31.0); Mean Corpuscular Volume 101.7 fl (78.0-98.0); Mean Platelet Volume 8.9 fL (7.4-10.4); Platelet Count 757 10x3/uL (130-400); RBC Distribution Width 15.3 % (11.5-14.5); Red Blood Cell (RBC) Count 2.87 mill/uL (4.20-5.40); White Blood Cell (WBC) Count 10.1 10x3/uL (4.8-10.8)
[2023-06-12 08:51] LABS: Anion Gap 11 mmol/L (10-20); BUN (Urea Nitrogen) 10 mg/dL (9.8-20.1); Calc. Creatinine Clearance 193 mL/min (70-130); Carbon Dioxide 35 mmol/L (23-31); Chloride 98 mmol/L (98-107); Estimated GFR 94; Glucose 114 mg/dL (80-115); Potassium 3.8 mmol/L (3.5-5.1); Sodium 140 mmol/L (136-145)
[2023-06-12] MEDS: Amiodarone 200 MG TAB PO SCH (09:24)
[2023-06-12] MEDS: Simethicone Chewable 80 MG TAB PO SCH ×4 (09:24→22:06)
[2023-06-12] MEDS: Famotidine 20 MG TAB PO SCH ×2 (09:24→22:06)
[2023-06-12] MEDS: Saccharomyces boulardii 250 MG CAP PO SCH ×2 (09:25→22:06)
[2023-06-12] MEDS: Spironolactone 25 MG TAB PO SCH (09:25)
[2023-06-12] MEDS: Furosemide 20 MG TAB PO SCH (09:25)
[2023-06-12] MEDS: Sertraline 100 MG TAB PO SCH (09:25)
[2023-06-12] MEDS: Pregabalin 75 MG CAP PO SCH ×2 (09:25→22:11)
[2023-06-12] MEDS ORDERED: GoLYTELY 4,000 ml Bottle PO SCH (12:00)
[2023-06-12] MEDS: DULoxetine 60 MG CAP PO SCH (22:05)
[2023-06-13] MEDS ORDERED: Midazolam HCl 2 mg/2 ml Vial ONE (09:02)
[2023-06-13] MEDS ORDERED: KETAMINE 100 MG/ML (5ML VIAL) ONE (09:02)
[2023-06-13] MEDS ORDERED: Glycopyrrolate 0.2 MG/ML 5 ML SYRINGE ONE ×2 (09:05→09:20)
[2023-06-13] MEDS ORDERED: Promethazine HCl 25 MG/ML VIAL IM PRN (10:06)
[2023-06-13] MEDS ORDERED: Ondansetron HCl/PF 4 MG/2 ML Vial IVP PRN (10:06)
[2023-06-13] MEDS: Famotidine 20 MG TAB PO SCH ×2 (12:42→21:37)
[2023-06-13] MEDS: Amiodarone 200 MG TAB PO SCH (12:42)
[2023-06-13] MEDS: Furosemide 20 MG TAB PO SCH (12:43)
[2023-06-13] MEDS: Pregabalin 75 MG CAP PO SCH ×2 (12:44→21:38)
[2023-06-13] MEDS: Spironolactone 25 MG TAB PO SCH (12:45)
[2023-06-13] MEDS: Saccharomyces boulardii 250 MG CAP PO SCH ×2 (12:45→21:37)
[2023-06-13] MEDS: Sertraline 100 MG TAB PO SCH (12:45)
[2023-06-13] MEDS: Simethicone Chewable 80 MG TAB PO SCH ×3 (13:30→21:37)
[2023-06-13 15:29] LABS: Anion Gap 14 mmol/L (10-20); BUN (Urea Nitrogen) 7 mg/dL (9.8-20.1); Calc. Creatinine Clearance 165 mL/min (70-130); Calcium 8.7 mg/dL (7.8-10.44); Carbon Dioxide 32 mmol/L (23-31); Chloride 97 mmol/L (98-107); Estimated GFR 78; Glucose 101 mg/dL (80-115); Potassium 3.9 mmol/L (3.5-5.1); Sodium 139 mmol/L (136-145)
[2023-06-13] MEDS: DULoxetine 60 MG CAP PO SCH (21:37)
[2023-06-13] MEDS: Apixaban 5 MG TAB PO SCH (21:37)
[2023-06-14] MEDS: Saccharomyces boulardii 250 MG CAP PO SCH ×2 (09:12→22:02)
[2023-06-14] MEDS: Famotidine 20 MG TAB PO SCH ×2 (09:12→22:02)
[2023-06-14] MEDS: Amiodarone 200 MG TAB PO SCH (09:12)
[2023-06-14] MEDS: Sertraline 100 MG TAB PO SCH (09:12)
[2023-06-14] MEDS: Furosemide 20 MG TAB PO SCH (09:12)
[2023-06-14] MEDS: Apixaban 5 MG TAB PO SCH ×2 (09:12→22:02)
[2023-06-14] MEDS: Simethicone Chewable 80 MG TAB PO SCH ×4 (09:12→22:01)
[2023-06-14] MEDS: Spironolactone 25 MG TAB PO SCH (09:13)
[2023-06-14] MEDS: Pregabalin 75 MG CAP PO SCH ×2 (10:31→22:02)
[2023-06-14 10:38] LABS: Anion Gap 16 mmol/L (10-20); BUN (Urea Nitrogen) 8 mg/dL (9.8-20.1); Calc. Creatinine Clearance 215 mL/min (70-130); Calcium 8.9 mg/dL (7.8-10.44); Carbon Dioxide 29 mmol/L (23-31); Chloride 100 mmol/L (98-107); Estimated GFR 98; Glucose 108 mg/dL (80-115); Potassium 3.9 mmol/L (3.5-5.1); Sodium 141 mmol/L (136-145)
[2023-06-14 11:10] LABS: #Basophils 0.1 thou/uL (0.0-0.2); #Eosinphils 0.4 thou/uL (0.0-0.7); #Monocytes 0.8 thou/uL (0.11-0.59); #Neutrophils 6.5 thou/uL (1.40-6.50); %Basophils 1.2 % (0.0-1.0); %Eosinophils 3.5 % (0.0-10.0); %Lymphocytes 20.1 % (21.0-51.0); %Monocytes 8.4 % (0.0-10.0); %Neutrophils 65.6 % (42.0-75.0); Hematocrit 30.4 % (36.0-47.0); Hemoglobin 9.6 g/dL (12.0-16.0); Mean Corpuscular HGB CONC 31.6 g/dL (32.0-36.0); Mean Corpuscular Hemoglobin 31.1 pg (27.0-31.0); Mean Corpuscular Volume 98.4 fl (78.0-98.0); Mean Platelet Volume 9.4 fL (7.4-10.4); Platelet Count 703 10x3/uL (130-400); RBC Distribution Width 15.6 % (11.5-14.5); Red Blood Cell (RBC) Count 3.09 mill/uL (4.20-5.40); White Blood Cell (WBC) Count 9.9 10x3/uL (4.8-10.8)
[2023-06-14 11:12] LABS: Manual Diff?? YES
[2023-06-14 11:41] LABS: Eosinophils 7 % (0-10); Lymphocytes 20 % (21-51); Monocytes 2 % (0-10); Myelocyte 1 % (0-0); Neutrophil 67 % (42-75); Reactive Lymphocytes 3 % (0-10)
[2023-06-14 11:42] LABS: Platelet Adequacy Comment Platelets Increased; Polychromasia SLIGHT = 2-3 cells (100X) (0-2/hpf)
[2023-06-14] MEDS: DULoxetine 60 MG CAP PO SCH (22:02)
[2023-06-15 08:14] LABS: Hematocrit 31.9 % (36.0-47.0); Hemoglobin 9.6 g/dL (12.0-16.0); Mean Corpuscular HGB CONC 30.1 g/dL (32.0-36.0); Mean Corpuscular Hemoglobin 30.8 pg (27.0-31.0); Platelet Count 640 10x3/uL (130-400); RBC Distribution Width 15.4 % (11.5-14.5); Red Blood Cell (RBC) Count 3.12 mill/uL (4.20-5.40)
[2023-06-15 08:19] LABS: Delete Auto Diff?? YES; Manual Diff?? YES; Mean Corpuscular Volume 102.2 fl (78.0-98.0)
[2023-06-15 08:31] LABS: Anion Gap 14 mmol/L (10-20); BUN (Urea Nitrogen) 9 mg/dL (9.8-20.1); Calc. Creatinine Clearance 188 mL/min (70-130); Calcium 9.2 mg/dL (7.8-10.44); Carbon Dioxide 31 mmol/L (23-31); Chloride 99 mmol/L (98-107); Estimated GFR 91; Glucose 109 mg/dL (80-115); Potassium 2.9 mmol/L (3.5-5.1); Sodium 141 mmol/L (136-145)
[2023-06-15] MEDS ORDERED: Potassium Chloride 20 MEQ TAB PO SCH (09:00)
[2023-06-15 09:14] LABS: Band 2 % (5-11); CellaVision Operator ID LAB.GE; Eosinophils 1 % (0-10); Lymphocytes 14 % (21-51); Macrocytosis SLIGHT = 6-15 cells HPF (0-5); Monocytes 9 % (0-10); Neutrophil 73 % (42-75); Platelet Adequacy Comment Platelets Increased; Polychromasia SLIGHT = 2-3 cells HPF (0-2); Stomatocytes SLIGHT = 2-5 cells HPF (0-1); Total Cell Count 100
[2023-06-15] MEDS: Pregabalin 75 MG CAP PO SCH ×2 (09:39→21:48)
[2023-06-15] MEDS: Saccharomyces boulardii 250 MG CAP PO SCH ×2 (09:40→21:48)
[2023-06-15] MEDS: Amiodarone 200 MG TAB PO SCH (09:40)
[2023-06-15] MEDS: Furosemide 20 MG TAB PO SCH (09:40)
[2023-06-15] MEDS: Spironolactone 25 MG TAB PO SCH (09:41)
[2023-06-15] MEDS: Sertraline 100 MG TAB PO SCH ×2 (09:41→10:04)
[2023-06-15] MEDS: Famotidine 20 MG TAB PO SCH ×2 (09:41→21:47)
[2023-06-15] MEDS: Simethicone Chewable 80 MG TAB PO SCH ×4 (09:41→21:47)
[2023-06-15] MEDS: Apixaban 5 MG TAB PO SCH ×2 (09:41→21:47)
[2023-06-15] MEDS: Potassium Chloride 20 MEQ in Premix 1 BAG IVPB SCH ×2 (09:41→13:31)
[2023-06-15 09:43] LABS: Magnesium 1.8 mg/dL (1.6-2.6)
[2023-06-15] MEDS ORDERED: Magnesium 2 GM/50 ML(in water) 1 GM in Premix 1 BAG IVPB SCH (11:00)
[2023-06-15] MEDS ORDERED: Magnesium 2 GM/50 ML(in water) 2 GM in Premix 1 BAG IVPB SCH (11:00)
[2023-06-15 14:04] LABS: Anion Gap 14 mmol/L (10-20); BUN (Urea Nitrogen) 7 mg/dL (9.8-20.1); Calc. Creatinine Clearance 218 mL/min (70-130); Carbon Dioxide 30 mmol/L (23-31); Chloride 99 mmol/L (98-107); Estimated GFR 98; Glucose 108 mg/dL (80-115); Potassium 3.5 mmol/L (3.5-5.1); Sodium 139 mmol/L (136-145)
[2023-06-15] MEDS: DULoxetine 60 MG CAP PO SCH (21:47)
[2023-06-16 07:07] LABS: #Basophils 0.2 thou/uL (0.0-0.2); #Eosinphils 0.4 thou/uL (0.0-0.7); #Monocytes 0.8 thou/uL (0.11-0.59); #Neutrophils 6.9 thou/uL (1.40-6.50); %Basophils 1.6 % (0.0-1.0); %Eosinophils 3.5 % (0.0-10.0); %Lymphocytes 19.6 % (21.0-51.0); %Neutrophils 66.3 % (42.0-75.0); Hematocrit 29.8 % (36.0-47.0); Hemoglobin 9.2 g/dL (12.0-16.0); Mean Corpuscular HGB CONC 30.9 g/dL (32.0-36.0); Mean Corpuscular Hemoglobin 30.9 pg (27.0-31.0); Mean Platelet Volume 9.1 fL (7.4-10.4); Platelet Count 638 10x3/uL (130-400); RBC Distribution Width 15.3 % (11.5-14.5); Red Blood Cell (RBC) Count 2.98 mill/uL (4.20-5.40); White Blood Cell (WBC) Count 10.3 10x3/uL (4.8-10.8)
[2023-06-16 07:38] LABS: Anion Gap 13 mmol/L (10-20); BUN (Urea Nitrogen) 9 mg/dL (9.8-20.1); Calc. Creatinine Clearance 199 mL/min (70-130); Calcium 9.2 mg/dL (7.8-10.44); Carbon Dioxide 32 mmol/L (23-31); Chloride 100 mmol/L (98-107); Estimated GFR 96; Glucose 115 mg/dL (80-115); Magnesium 2.1 mg/dL (1.6-2.6); Potassium 3.4 mmol/L (3.5-5.1); Sodium 142 mmol/L (136-145)
[2023-06-16] MEDS ORDERED: Potassium Chloride 20 MEQ TAB PO SCH (09:00)
[2023-06-16] MEDS: Famotidine 20 MG TAB PO SCH (09:24)
[2023-06-16] MEDS: Saccharomyces boulardii 250 MG CAP PO SCH (09:24)
[2023-06-16] MEDS: Amiodarone 200 MG TAB PO SCH (09:24)
[2023-06-16] MEDS: Simethicone Chewable 80 MG TAB PO SCH ×2 (09:24→12:41)
[2023-06-16] MEDS: Spironolactone 25 MG TAB PO SCH (09:25)
[2023-06-16] MEDS: Furosemide 20 MG TAB PO SCH (09:25)
[2023-06-16] MEDS: Pregabalin 75 MG CAP PO SCH (09:25)
[2023-06-16] MEDS: Apixaban 5 MG TAB PO SCH (09:25)
[2023-06-16 12:09] VITALS: BP 111/70; TEMP 98.6
== END 2023-06-16 16:45 | DRG 871 ==
LOC: T4-B 15:39 → 2NO 05-29 13:41 → T4-B 06-13 12:19
PROVIDERS: ADMIT Internal Medicine; ATTEND Family Medicine
PROC: XW0H7X8 Introduction of Broad Consortium Microbiota-based Live Biotherapeutic Suspension into Lower GI, Via Natural or Artificial Opening, New Technology Group 8 (ICD-10-PCS; principal; 2023-05-29)
PROC: XW0H7X8 Introduction of Broad Consortium Microbiota-based Live Biotherapeutic Suspension into Lower GI, Via Natural or Artificial Opening, New Technology Group 8 (ICD-10-PCS; 2023-06-05)
PROC: XW0H7X8 Introduction of Broad Consortium Microbiota-based Live Biotherapeutic Suspension into Lower GI, Via Natural or Artificial Opening, New Technology Group 8 (ICD-10-PCS; 2023-06-13)
PROC: 0DBM8ZX Excision of Descending Colon, Via Natural or Artificial Opening Endoscopic, Diagnostic (ICD-10-PCS; 2023-06-13)
PROC: 0DBL8ZX Excision of Transverse Colon, Via Natural or Artificial Opening Endoscopic, Diagnostic (ICD-10-PCS; 2023-06-13)
DX: A41.9 Sepsis, unspecified organism (principal); J96.01 Acute respiratory failure with hypoxia; A04.72 Enterocolitis due to Clostridium difficile, not specified as recurrent; E87.1 Hypo-osmolality and hyponatremia; I50.32 Chronic diastolic (congestive) heart failure; Z68.43 Body mass index [BMI] 50.0-59.9, adult; I48.3 Typical atrial flutter; I48.0 Paroxysmal atrial fibrillation; E11.9 Type 2 diabetes mellitus without complications; E66.01 Morbid (severe) obesity due to excess calories; Z79.899 Other long term (current) drug therapy; F32.A Depression, unspecified; Z90.49 Acquired absence of other specified parts of digestive tract; Z90.89 Acquired absence of other organs; E78.5 Hyperlipidemia, unspecified; Z79.01 Long term (current) use of anticoagulants; Z79.82 Long term (current) use of aspirin; Z82.49 Family history of ischemic heart disease and other diseases of the circulatory system; G47.33 Obstructive sleep apnea (adult) (pediatric); Z88.0 Allergy status to penicillin; Z88.2 Allergy status to sulfonamides; Z88.5 Allergy status to narcotic agent; E87.6 Hypokalemia; E83.42 Hypomagnesemia; K64.4 Residual hemorrhoidal skin tags
CPT/HCPCS: 36415; 36416; 74018; 74174; 80048; 80053; 82728; 83036; 83605; 83615; 83735; 84100; 85014; 85018; 85025; 88305; J1650; J2001; J2250; J2704; J3475; J3480; Q9967

== ENCOUNTER 2023-07-23 10:44 | Inpatient (IN) | payer MEDICARE, OTHER ==
[2023-07-23 11:25] LABS: #Basophils 0.1 thou/uL (0.0-0.2); #Eosinphils 0.3 thou/uL (0.0-0.7); #Monocytes 0.5 thou/uL (0.11-0.59); #Neutrophils 5.2 thou/uL (1.40-6.50); %Basophils 1.3 % (0.0-1.0); %Eosinophils 3.6 % (0.0-10.0); %Lymphocytes 21.4 % (21.0-51.0); %Monocytes 6.7 % (0.0-10.0); %Neutrophils 66.6 % (42.0-75.0); Hematocrit 42.5 % (36.0-47.0); Hemoglobin 13.3 g/dL (12.0-16.0); Mean Corpuscular HGB CONC 31.3 g/dL (32.0-36.0); Mean Corpuscular Hemoglobin 30.1 pg (27.0-31.0); Mean Corpuscular Volume 96.2 fl (78.0-98.0); Mean Platelet Volume 10.2 fL (7.4-10.4); Platelet Count 348 10x3/uL (130-400); RBC Distribution Width 12.7 % (11.5-14.5); Red Blood Cell (RBC) Count 4.42 mill/uL (4.20-5.40); White Blood Cell (WBC) Count 7.8 10x3/uL (4.8-10.8)
[2023-07-23 11:36] LABS: INR-International Normal Ratio 1.3; Prothrombin Time 15.8 sec (12.0-14.7)
[2023-07-23 11:37] LABS: ALT (SGPT) 34 U/L (8-55); AST (SGOT) 26 U/L (5-34); Alkaline Phosphatase 104 U/L (40-110); Anion Gap 10 mmol/L (10-20); BUN (Urea Nitrogen) 17 mg/dL (9.8-20.1); Bilirubin, Total 0.9 mg/dL (0.2-1.2); Calc. Creatinine Clearance 0 mL/min (70-130); Calcium 9.8 mg/dL (7.8-10.44); Carbon Dioxide 33 mmol/L (23-31); Chloride 98 mmol/L (98-107); Estimated GFR 83; Globulin 3.5 g/dL (2.4-3.5); Glucose 108 mg/dL (80-115); Lipase 42 U/L (8-78); PTT 52.7 sec (22.9-36.1); Potassium 4.2 mmol/L (3.5-5.1); Protein, Total 7.5 g/dL (5.8-8.1); Sodium 137 mmol/L (136-145)
[2023-07-23 11:40] LABS: Troponin I Less than 0.010 ng/mL (< 0.028)
[2023-07-23] MEDS ORDERED: Iopamidol-370 76% 500 ML MDV (1 ML CHARGE) ONE (12:34)
[2023-07-23] MEDS ORDERED: Pantoprazole 40 MG VIAL ONE (12:52)
[2023-07-23] MEDS ORDERED: Ondansetron ODT 4 MG TAB SL PRN (15:30)
[2023-07-23] MEDS ORDERED: Ondansetron PF 4 MG/2 ML Vial IVP PRN (15:30)
[2023-07-23] MEDS ORDERED: Acetaminophen 325 MG TAB PO PRN (15:30)
[2023-07-23 16:08] VITALS: BMI 49.1
[2023-07-23 17:41] LABS: Hemoglobin 12.9 g/dL (12.0-16.0)
[2023-07-23] MEDS: Ipratropium/Albuterol 3 ML NEB NEB SCH (18:42)
[2023-07-23] MEDS: Saccharomyces boulardii 250 MG CAP PO SCH (20:39)
[2023-07-23] MEDS ORDERED: Famotidine 20 MG TAB PO SCH (21:00)
[2023-07-23] MEDS ORDERED: Famotidine/PF 20 mg/2ml Vial SLOW IVP SCH (21:00)
[2023-07-24] MEDS: Ipratropium/Albuterol 3 ML NEB NEB SCH ×4 (08:24→18:56)
[2023-07-24] MEDS: Ranolazine 500 MG ER.TAB PO SCH (09:17)
[2023-07-24] MEDS: Fleet Saline Enema 133 ML BOT PR SCH ×3 (09:17→20:21)
[2023-07-24] MEDS: Saccharomyces boulardii 250 MG CAP PO SCH ×2 (09:17→20:21)
[2023-07-24] MEDS: Floranex 1 GM Packet PO SCH (09:17)
[2023-07-24] MEDS: Amiodarone 200 MG TAB PO SCH (09:17)
[2023-07-24] MEDS: Polyethylene Glycol 3350 17 GM Packet PO SCH (09:17)
[2023-07-24] MEDS: Bisacodyl 10 MG SUPP PR SCH ×2 (10:34→18:53)
[2023-07-24] MEDS ORDERED: Ondansetron PF 4 MG/2 ML Vial IVP PRN (11:24)
[2023-07-24 12:00] LABS: #Basophils 0.1 thou/uL (0.0-0.2); #Eosinphils 0.2 thou/uL (0.0-0.7); #Monocytes 0.5 thou/uL (0.11-0.59); %Basophils 1.1 % (0.0-1.0); %Eosinophils 3.3 % (0.0-10.0); %Lymphocytes 17.1 % (21.0-51.0); %Monocytes 7.4 % (0.0-10.0); %Neutrophils 70.7 % (42.0-75.0); Hematocrit 41.3 % (36.0-47.0); Hemoglobin 13.1 g/dL (12.0-16.0); Mean Corpuscular HGB CONC 31.7 g/dL (32.0-36.0); Mean Corpuscular Hemoglobin 30.5 pg (27.0-31.0); Mean Platelet Volume 10.7 fL (7.4-10.4); Platelet Count 343 10x3/uL (130-400); RBC Distribution Width 12.7 % (11.5-14.5); White Blood Cell (WBC) Count 7.1 10x3/uL (4.8-10.8)
[2023-07-24 12:17] LABS: Anion Gap 14 mmol/L (10-20); BUN (Urea Nitrogen) 13 mg/dL (9.8-20.1); Calc. Creatinine Clearance 160 mL/min (70-130); Carbon Dioxide 27 mmol/L (23-31); Chloride 100 mmol/L (98-107); Potassium 4.2 mmol/L (3.5-5.1); Sodium 137 mmol/L (136-145)
[2023-07-24 12:18] LABS: Calcium 9.5 mg/dL (7.8-10.44); Estimated GFR 90; Glucose 93 mg/dL (80-115)
[2023-07-24 14:22] LABS: Bilirubin Unable to Interpret (Negative); Blood, Urine Unable to Interpret (Negative); Clarity Cloudy (Clear); Glucose, Urine (Dipstick) Unable to Interpret mg/dL (Negative); Ketone, Urine Unable to Interpret mg/dL (Negative); Leukocyte Unable to Interpret (Negative); Nitrite Unable to Interpret (Negative); Protein, Urine (Dipstick) Unable to Interpret mg/dL (Neg-Trace); Urobilinogen UNABLE TO INTERPRET mg/dL (Less than 2)
[2023-07-24 14:23] LABS: Bacteria/HPF 2+ HPF (None Seen); CAUTI Indications for Culture Acute Hematuria; RBC/HPF Greater than 50 HPF (0-3)
[2023-07-24 14:24] LABS: Urine Culture Reflex No No
[2023-07-24 17:52] LABS: Bilirubin Unable to Interpret (Negative); Blood, Urine Unable to Interpret (Negative); Clarity Cloudy (Clear); Glucose, Urine (Dipstick) Unable to Interpret mg/dL (Negative); Ketone, Urine Unable to Interpret mg/dL (Negative); Leukocyte Unable to Interpret Leu/uL (Negative); Nitrite Unable to Interpret (Negative); Protein, Urine (Dipstick) Unable to Interpret mg/dL (Neg-Trace); Specific Gravity, Urine 1.013 (1.002-1.036); Urobilinogen UNABLE TO INTERPRET mg/dL (Less than 2); pH, Urine 5.7 (5.0-9.0)
[2023-07-24 17:56] LABS: Bacteria/HPF Rare-Few HPF (None Seen); CAUTI Indications for Culture Acute Hematuria; RBC/HPF Greater than 50 HPF (0-3); Squamous Epithelial 0-3 HPF (0-3); Urine Culture Reflex No No
[2023-07-25] MEDS: Bisacodyl 10 MG SUPP PR SCH ×2 (04:30→09:43)
[2023-07-25] MEDS: Fleet Saline Enema 133 ML BOT PR SCH ×3 (04:31→15:29)
[2023-07-25] MEDS: Ipratropium/Albuterol 3 ML NEB NEB SCH ×4 (07:28→18:17)
[2023-07-25 07:46] LABS: #Basophils 0.1 thou/uL (0.0-0.2); #Eosinphils 0.3 thou/uL (0.0-0.7); #Monocytes 0.5 thou/uL (0.11-0.59); #Neutrophils 4.6 thou/uL (1.40-6.50); %Lymphocytes 20.4 % (21.0-51.0); %Monocytes 6.6 % (0.0-10.0); %Neutrophils 67.6 % (42.0-75.0); Hematocrit 40.5 % (36.0-47.0); Hemoglobin 12.8 g/dL (12.0-16.0); Mean Corpuscular HGB CONC 31.6 g/dL (32.0-36.0); Mean Corpuscular Hemoglobin 29.8 pg (27.0-31.0); Mean Corpuscular Volume 94.4 fl (78.0-98.0); Mean Platelet Volume 10.7 fL (7.4-10.4); Platelet Count 329 10x3/uL (130-400); RBC Distribution Width 12.8 % (11.5-14.5); Red Blood Cell (RBC) Count 4.29 mill/uL (4.20-5.40); White Blood Cell (WBC) Count 6.8 10x3/uL (4.8-10.8)
[2023-07-25 08:06] LABS: Anion Gap 16 mmol/L (10-20); BUN (Urea Nitrogen) 12 mg/dL (9.8-20.1); Calc. Creatinine Clearance 156 mL/min (70-130); Calcium 9.8 mg/dL (7.8-10.44); Carbon Dioxide 28 mmol/L (23-31); Chloride 99 mmol/L (98-107); Estimated GFR 87; Glucose 111 mg/dL (80-115); Potassium 3.7 mmol/L (3.5-5.1); Sodium 139 mmol/L (136-145)
[2023-07-25] MEDS: Polyethylene Glycol 3350 17 GM Packet PO SCH (09:43)
[2023-07-25] MEDS: Amiodarone 200 MG TAB PO SCH (10:02)
[2023-07-25] MEDS: Floranex 1 GM Packet PO SCH (10:02)
[2023-07-25] MEDS: Ranolazine 500 MG ER.TAB PO SCH (10:02)
[2023-07-25] MEDS: Saccharomyces boulardii 250 MG CAP PO SCH ×2 (10:02→20:02)
[2023-07-25] MEDS ORDERED: Bisacodyl 10 MG SUPP PR PRN (16:04)
[2023-07-25] MEDS ORDERED: Fleet Saline Enema 133 ML BOT PR PRN (16:04)
[2023-07-25] MEDS ORDERED: Pregabalin 75 MG CAP PO SCH (22:00)
[2023-07-26 07:46] LABS: #Basophils 0.1 thou/uL (0.0-0.2); #Eosinphils 0.4 thou/uL (0.0-0.7); #Monocytes 1.1 thou/uL (0.11-0.59); #Neutrophils 5.1 thou/uL (1.40-6.50); %Basophils 1.4 % (0.0-1.0); %Eosinophils 4.8 % (0.0-10.0); %Lymphocytes 21.7 % (21.0-51.0); %Monocytes 13.1 % (0.0-10.0); %Neutrophils 58.5 % (42.0-75.0); Hematocrit 42.7 % (36.0-47.0); Hemoglobin 13.3 g/dL (12.0-16.0); Mean Corpuscular HGB CONC 31.1 g/dL (32.0-36.0); Mean Corpuscular Hemoglobin 29.9 pg (27.0-31.0); Mean Platelet Volume 10.3 fL (7.4-10.4); Platelet Count 307 10x3/uL (130-400); RBC Distribution Width 12.6 % (11.5-14.5); Red Blood Cell (RBC) Count 4.45 mill/uL (4.20-5.40); White Blood Cell (WBC) Count 8.7 10x3/uL (4.8-10.8)
[2023-07-26 08:03] LABS: Anion Gap 14 mmol/L (10-20); BUN (Urea Nitrogen) 12 mg/dL (9.8-20.1); Calc. Creatinine Clearance 150 mL/min (70-130); Calcium 9.8 mg/dL (7.8-10.44); Carbon Dioxide 27 mmol/L (23-31); Chloride 102 mmol/L (98-107); Estimated GFR 83; Glucose 109 mg/dL (80-115); Potassium 3.8 mmol/L (3.5-5.1); Sodium 139 mmol/L (136-145)
[2023-07-26] MEDS: Ipratropium/Albuterol 3 ML NEB NEB SCH ×2 (08:08→12:22)
[2023-07-26] MEDS: Amiodarone 200 MG TAB PO SCH (08:54)
[2023-07-26] MEDS: Pregabalin 75 MG CAP PO SCH ×2 (08:54→20:03)
[2023-07-26] MEDS: Ranolazine 500 MG ER.TAB PO SCH (08:54)
[2023-07-26] MEDS: Polyethylene Glycol 3350 17 GM Packet PO SCH (08:54)
[2023-07-26] MEDS: Saccharomyces boulardii 250 MG CAP PO SCH ×2 (08:55→20:03)
[2023-07-26] MEDS: Floranex 1 GM Packet PO SCH (08:56)
[2023-07-26] MEDS ORDERED: Fosfomycin 3 GM/Packet PO SCH (18:00)
[2023-07-27 04:22] LABS: #Basophils 0.1 thou/uL (0.0-0.2); #Eosinphils 0.4 thou/uL (0.0-0.7); #Monocytes 0.6 thou/uL (0.11-0.59); #Neutrophils 4.2 thou/uL (1.40-6.50); %Basophils 1.2 % (0.0-1.0); %Eosinophils 5.4 % (0.0-10.0); %Monocytes 7.8 % (0.0-10.0); %Neutrophils 56.2 % (42.0-75.0); Hematocrit 40.2 % (36.0-47.0); Hemoglobin 12.8 g/dL (12.0-16.0); Mean Corpuscular HGB CONC 31.8 g/dL (32.0-36.0); Mean Corpuscular Hemoglobin 30.3 pg (27.0-31.0); Mean Platelet Volume 10.3 fL (7.4-10.4); Platelet Count 328 10x3/uL (130-400); RBC Distribution Width 12.7 % (11.5-14.5); Red Blood Cell (RBC) Count 4.23 mill/uL (4.20-5.40); White Blood Cell (WBC) Count 7.5 10x3/uL (4.8-10.8)
[2023-07-27 04:57] LABS: Anion Gap 18 mmol/L (10-20); BUN (Urea Nitrogen) 13 mg/dL (9.8-20.1); Calc. Creatinine Clearance 141 mL/min (70-130); Calcium 9.8 mg/dL (7.8-10.44); Carbon Dioxide 24 mmol/L (23-31); Chloride 101 mmol/L (98-107); Estimated GFR 77; Glucose 112 mg/dL (80-115); Potassium 3.6 mmol/L (3.5-5.1); Sodium 139 mmol/L (136-145)
[2023-07-27] MEDS: Pregabalin 75 MG CAP PO SCH ×2 (08:28→21:03)
[2023-07-27] MEDS: Ranolazine 500 MG ER.TAB PO SCH (08:29)
[2023-07-27] MEDS: Polyethylene Glycol 3350 17 GM Packet PO SCH (08:30)
[2023-07-27] MEDS: Saccharomyces boulardii 250 MG CAP PO SCH ×2 (08:30→21:03)
[2023-07-27] MEDS: Amiodarone 200 MG TAB PO SCH (08:30)
[2023-07-27] MEDS: Floranex 1 GM Packet PO SCH (08:31)
[2023-07-28 05:16] LABS: #Basophils 0.1 thou/uL (0.0-0.2); #Eosinphils 0.4 thou/uL (0.0-0.7); #Monocytes 0.5 thou/uL (0.11-0.59); #Neutrophils 4.1 thou/uL (1.40-6.50); %Basophils 1.5 % (0.0-1.0); %Eosinophils 5.8 % (0.0-10.0); %Lymphocytes 28.9 % (21.0-51.0); %Monocytes 7.2 % (0.0-10.0); %Neutrophils 56.2 % (42.0-75.0); Mean Corpuscular HGB CONC 31.7 g/dL (32.0-36.0); Mean Corpuscular Hemoglobin 29.5 pg (27.0-31.0); Mean Corpuscular Volume 93.2 fl (78.0-98.0); Mean Platelet Volume 10.5 fL (7.4-10.4); Platelet Count 348 10x3/uL (130-400); RBC Distribution Width 12.5 % (11.5-14.5); White Blood Cell (WBC) Count 7.4 10x3/uL (4.8-10.8)
[2023-07-28 06:03] LABS: Anion Gap 14 mmol/L (10-20); BUN (Urea Nitrogen) 12 mg/dL (9.8-20.1); Calc. Creatinine Clearance 160 mL/min (70-130); Calcium 9.8 mg/dL (7.8-10.44); Carbon Dioxide 25 mmol/L (23-31); Chloride 102 mmol/L (98-107); Estimated GFR 90; Glucose 113 mg/dL (80-115); Potassium 3.5 mmol/L (3.5-5.1); Sodium 137 mmol/L (136-145)
[2023-07-28] MEDS: Amiodarone 200 MG TAB PO SCH (08:40)
[2023-07-28] MEDS: Ranolazine 500 MG ER.TAB PO SCH (08:40)
[2023-07-28] MEDS: Saccharomyces boulardii 250 MG CAP PO SCH ×2 (08:40→22:11)
[2023-07-28] MEDS: Polyethylene Glycol 3350 17 GM Packet PO SCH (08:40)
[2023-07-28] MEDS: Pregabalin 75 MG CAP PO SCH ×2 (08:40→22:10)
[2023-07-28] MEDS: Floranex 1 GM Packet PO SCH (08:40)
[2023-07-28] MEDS: Acetaminophen 325 MG TAB PO PRN (11:08)
[2023-07-28 21:34] VITALS: TEMP 98.1
[2023-07-29] MEDS: Acetaminophen 325 MG TAB PO PRN (08:18)
[2023-07-29] MEDS: Ranolazine 500 MG ER.TAB PO SCH (08:19)
[2023-07-29] MEDS: Floranex 1 GM Packet PO SCH (08:19)
[2023-07-29] MEDS: Amiodarone 200 MG TAB PO SCH (08:19)
[2023-07-29] MEDS: Polyethylene Glycol 3350 17 GM Packet PO SCH (08:19)
[2023-07-29] MEDS: Pregabalin 75 MG CAP PO SCH (08:19)
[2023-07-29] MEDS: Saccharomyces boulardii 250 MG CAP PO SCH (08:19)
[2023-07-29] MEDS ORDERED: Potassium Chloride 20 MEQ TAB PO SCH (11:00)
[2023-07-29 12:06] VITALS: BP 115/77
== END 2023-07-29 16:15 | DRG 690 ==
LOC: ERS 10:44 → T4-B 15:11 → OBSVTOIN 07-25 15:12
PROVIDERS: ADMIT Hospitalist; ATTEND Hospitalist
PROC: XW0DXF5 Introduction of Other New Technology Therapeutic Substance into Mouth and Pharynx, External Approach, New Technology Group 5 (ICD-10-PCS; principal; 2023-07-26)
DX: N39.0 Urinary tract infection, site not specified (principal); I50.22 Chronic systolic (congestive) heart failure; Z16.12 Extended spectrum beta lactamase (ESBL) resistance; R31.9 Hematuria, unspecified; K52.9 Noninfective gastroenteritis and colitis, unspecified; E78.5 Hyperlipidemia, unspecified; I11.0 Hypertensive heart disease with heart failure; Z88.0 Allergy status to penicillin; Z88.1 Allergy status to other antibiotic agents; K59.00 Constipation, unspecified; Z79.82 Long term (current) use of aspirin; Z79.899 Other long term (current) drug therapy; Z90.49 Acquired absence of other specified parts of digestive tract; Z90.89 Acquired absence of other organs; F32.A Depression, unspecified; E11.9 Type 2 diabetes mellitus without complications; M79.7 Fibromyalgia; I48.0 Paroxysmal atrial fibrillation; Z79.01 Long term (current) use of anticoagulants; Z88.2 Allergy status to sulfonamides; Z88.5 Allergy status to narcotic agent
CPT/HCPCS: 36415; 74177; 80048; 80053; 81001; 83690; 84484; 85025; 85610; 85730; 87077; 87086; 87186; 93005; 94640; 94760; 96374; C9113; J2405; J7620; Q9967

== ENCOUNTER 2023-08-30 09:24 | Day surgery (SDC) | payer OTHER, MEDICAID ==
[2023-08-30] MEDS ORDERED: Lidocaine 2% PF 5 ML VIAL ONE (09:45)
[2023-08-30] MEDS ORDERED: PROPOFOL 20 ML ONE (10:00)
[2023-08-30] MEDS ORDERED: fentaNYL PF 100 MCG/2 ML SYRINGE ONE (10:00)
[2023-08-30] MEDS ORDERED: SUGAMMADEX SODIUM 200 MG/2 ML VIAL ONE (10:46)
[2023-08-30] MEDS ORDERED: Ondansetron PF 4 MG/2 ML Vial ONE (11:43)
== END 2023-08-30 17:05 | disposition home or self-care (01) ==
LOC: SDC 09:24
PROVIDERS: ATTEND Urology
PROC: 0TJB8ZZ Inspection of Bladder, Via Natural or Artificial Opening Endoscopic (ICD-10-PCS; principal; 2023-08-30)
DX: R31.0 Gross hematuria (principal); R13.0 Aphagia; N39.0 Urinary tract infection, site not specified; E66.9 Obesity, unspecified; I13.0 Hypertensive heart and chronic kidney disease with heart failure and stage 1 through stage 4 chronic kidney disease, or unspecified chronic kidney disease; I50.9 Heart failure, unspecified; N18.9 Chronic kidney disease, unspecified; E11.22 Type 2 diabetes mellitus with diabetic chronic kidney disease; E78.5 Hyperlipidemia, unspecified; I48.92 Unspecified atrial flutter; G47.33 Obstructive sleep apnea (adult) (pediatric); I48.91 Unspecified atrial fibrillation; F32.A Depression, unspecified; G89.4 Chronic pain syndrome; Z88.0 Allergy status to penicillin; Z88.2 Allergy status to sulfonamides; Z88.5 Allergy status to narcotic agent; Z98.890 Other specified postprocedural states; Z79.899 Other long term (current) drug therapy
CPT/HCPCS: J2001; J2405; J2704